=== PATIENT | female | born 2000 | race Caucasian/White ===

== ENCOUNTER 2020-12-02 09:15 | Emergency (ER) | payer OTHER ==
[~2020-12-02] VITALS: Ht 170.2 cm; Wt 86.3 kg
[~2020-12-02 09:15] MED LIST: AMOXICILLIN500 MG OR; MOTRIN JR100 MG OR; NO HOME MEDS
[2020-12-02 10:50] VITALS: BP 135/98
== END 2020-12-02 10:50 | disposition home or self-care (01) | DRG 605 ==
LOC: ED 09:15
DX: S60.221A Contusion of right hand, initial encounter (principal); W22.09XA Striking against other stationary object, initial encounter; Y92.009 Unspecified place in unspecified non-institutional (private) residence as the place of occurrence of the external cause